=== PATIENT | male | born 1950 | race Caucasian/White ===

== ENCOUNTER → 2021-02-11 00:20 | Outpatient (CLI) | payer MEDICARE, SELFPAY ==
[2021-02-13 13:22] LABS: SARS-CoV-2 RNA PCR Negative
== END ==
PROVIDERS: PCP Family Medicine; Visit Provider Internal Medicine Gastroenterology
DX: Z01.812 Encounter for preprocedural laboratory examination (principal); Z20.822 Contact with and (suspected) exposure to COVID-19
CPT/HCPCS: C9803; U0003; U0005

== ENCOUNTER 2021-02-14 00:32 | Day surgery (SDC) | payer MEDICARE, SELFPAY ==
[2021-01-25 13:51] VITALS: BMI 33.5
[2021-02-13 12:49] LABS: EDCOVIDSCREEN Negative (Negative)
[2021-02-14 06:22] VITALS: BP 129/83; PULSE 67; RESP 14; TEMP 36.2; O2SAT 97; BMI 32.5
[2021-02-14] MEDS: LACTATED RINGERS 1,000 ML 150 ML IV CONT (06:34)
--- NOTE | 2021-02-14 07:15 | WPDANESEPPF ---
Anes - Initial Pre Proc Eval Procedure: Operation Date: 02/14/21 07:30 Proposed Procedures p Screening Colonoscopy - Reji Emmanuel DO Date/Time: 02/14/21 07:15 Surgeon: Reji Emmanuel DO Pre Op Diagnosis: Neoplasm Screening Patient Data Age: 70 Gender: M Height: 1.73 m Weight: 97.2 kg Last Vital Signs Temp 36.2 C L 02/14/21 06:22 Pulse 67 02/14/21 06:22 Resp 14 02/14/21 06:22 BP 129/83 02/14/21 06:22 Pulse Ox 97 02/14/21 06:22 Allergies Allergy/AdvReac Type Severity Reaction Status Date / Time No Known Allergies Allergy Mild Verified 02/14/21 06:18 Home Medications Medication Instructions Recorded Confirmed Type brimonidine 0.2 % eye drops 1 drop EACH EYE Q8H 08/26/19 01/25/21 History cetirizine 10 mg tablet 5 mg PO DAILY 08/26/19 01/25/21 History amlodipine 10 mg tablet 10 mg PO DAILY #90 tablet 09/04/20 01/25/21 Rx fenofibrate 160 mg tablet 160 mg PO DAILY #90 tablet 09/04/20 01/25/21 Rx quinapril 20 2 tablet PO DAILY #180 tablet 09/04/20 01/25/21 Rx mg-hydrochlorothiazide 12.5 mg tablet Laboratory Tests 02/13/21 12:19 SARS-CoV-2 IgG/IgM Ag?Rapid Negative (Negative) Patient hx anesthesia problems: none Family hx anesthesia problems: none PMFSH Surgical History Surgical History (Updated 08/29/19 @ 17:21 by Zi Echevarria MD) Status post tonsillectomy Family History Family History Father Family history of coronary artery disease Diabetes mellitus Mother Diabetes mellitus Social History Social History Smoking status: Never smoker Second hand tobacco smoke exposure: No Smoking end date: 08/24/05 Alcohol intake: current Drinks per week: 14 Substance use: never Substance use type: does not use Living arrangements: with family Gender identity (if verbalized by the patient): Male Spiritual care concerns: No Anes - Eval Final PreProcedure Day of Procedure 02/14/21 07:15 Patient weight: morbidly obese Heart: regular rate and rhythm Lungs: clear to auscultation Airway: Mallampati scale class II Neurological: alert and oriented Last oral intake: >/= 8 hours ASA classification: III Emergent: no Anesthetic plan: proceed Anesthesia type and monitoring: general GIVS and standard monitoring Informed Consent: The patient's anesthetic plan and its attendant risks and benefits were discussed with the patient/family/POA. Questions were solicited and answers provided to the satisfaction of the patient/family/POA.
--- NOTE | 2021-02-14 07:30 | WPDGICN ---
GI Consult Note Consult date/time: 02/14/21 07:30 HPI: Reason for visit is colonoscopy. This very pleasant gentleman seen in consultation request the primary physician. Impression: Screening and surveillance colonoscopy. Patient's history adenomatous colon polyps. HLD. HTN. ALONSO. Obesity. Glaucoma. Recommendation: Colonoscopy. History: This very pleasant gentleman is here for screening and surveillance colonoscopy. He has a history adenomatous colon polyps. His GI review systems negative. Physical examination: General: very pleasant patient in no acute distress. HEENT: Head was normocephalic sclerae is clear mouth without masses neck was supple. Heart: Rate rhythm regular without S3 or S4. Lungs: CTA. Abdomen: Soft with no guarding or rigidity. Bowel sounds were active. Neurologic: Cranial nerves 2 through 12 intact. No focal defects. No clonus. Musculoskeletal system: Revealed no joint tenderness or swelling no muscle atrophy. Extremities: Reveal no significant edema. Skin: Warm and dry with normal turgor. Mental status: intact. Patient is alert and oriented. Review of Systems Review of Systems: All systems reviewed & are unremarkable except as noted in HPI and below PMFSH Past Medical History Medical History (Updated 02/14/21 @ 07:30 by Reji Emmanuel DO) Adenomatous colon polyp Glaucoma HLD (hyperlipidemia) HTN (hypertension) Obesity ALONSO (obstructive sleep apnea) Surgical History Surgical History (Updated 02/14/21 @ 07:20 by Reji Emmanuel DO) H/O colonoscopy Status post tonsillectomy Family History Family History Father Family history of coronary artery disease Diabetes mellitus Mother Diabetes mellitus Social History Social History Smoking status: Never smoker Second hand tobacco smoke exposure: No Smoking end date: 08/24/05 Alcohol intake: current Drinks per week: 14 Substance use: never Substance use type: does not use Living arrangements: with family Gender identity (if verbalized by the patient): Male Spiritual care concerns: No Meds Home Medications and Allergies Home Medications Medication Instructions Recorded Confirmed Type brimonidine 0.2 % eye drops 1 drop EACH EYE Q8H 08/26/19 01/25/21 History cetirizine 10 mg tablet 5 mg PO DAILY 08/26/19 01/25/21 History amlodipine 10 mg tablet 10 mg PO DAILY #90 tablet 09/04/20 01/25/21 Rx fenofibrate 160 mg tablet 160 mg PO DAILY #90 tablet 09/04/20 01/25/21 Rx quinapril 20 2 tablet PO DAILY #180 tablet 09/04/20 01/25/21 Rx mg-hydrochlorothiazide 12.5 mg tablet Allergies Allergy/AdvReac Type Severity Reaction Status Date / Time No Known Allergies Allergy Mild Verified 02/14/21 06:18 Vital Signs Vital Signs - 24 hr 02/14/21 06:22 Temperature 36.2 C L Pulse Rate 67 Respiratory Rate 14 Blood Pressure 129/83 Pulse Oximetry 97
[2021-02-14 07:55] VITALS: BP 109/62; PULSE 63; RESP 19; O2SAT 97
[2021-02-14 08:05] VITALS: BP 112/72; PULSE 60; RESP 17; O2SAT 99
[2021-02-14 08:15] VITALS: BP 121/63; PULSE 60; RESP 20; O2SAT 98
== END 2021-02-14 08:35 | disposition home or self-care (01) ==
PROVIDERS: PCP Family Medicine; Visit Provider Internal Medicine Gastroenterology
PROC: 0DJD8ZZ Inspection of Lower Intestinal Tract, Via Natural or Artificial Opening Endoscopic (ICD-10-PCS; CPT 45378; principal; 2021-02-14 07:30)
DX: Z12.11 Encounter for screening for malignant neoplasm of colon (principal); D12.4 Benign neoplasm of descending colon; D12.2 Benign neoplasm of ascending colon; K64.8 Other hemorrhoids; K64.4 Residual hemorrhoidal skin tags; I10 Essential (primary) hypertension; E78.5 Hyperlipidemia, unspecified; G47.33 Obstructive sleep apnea (adult) (pediatric); H40.9 Unspecified glaucoma; E66.9 Obesity, unspecified; Z68.32 Body mass index [BMI] 32.0-32.9, adult; Z20.822 Contact with and (suspected) exposure to COVID-19
CPT/HCPCS: 45385; 45380; 36415; 87426; 88305; C9803; J7120; U0003; U0005

== ENCOUNTER → 2022-10-21 07:36 | Outpatient (CLI) | payer MEDICARE, SELFPAY ==
--- NOTE | ~2022-10-21 | US_ITS ---
EXAMINATION: US aorta [facility] DATE: 10/21/2022 08:29 [employer] INDICATION: Hypertension, obesity, past history of smoking and high cholesterol TECHNIQUE: Grayscale, color Doppler, and pulsed Doppler images of the aorta and common iliac arteries were obtained. COMPARISON: None. FINDINGS: The proximal aorta measures 2.7 cm greatest sagittal dimension. The mid aorta measures 1.6 cm greates t sagittal dimension. The distal aorta measures 1.8 cm greatest sagittal dimension. The right common internal iliac artery measures 1.1 cm. The left common iliac artery measures 1.5 cm. IMPRESSION: 1. Normal caliber aorta without aneurysm. Reviewed, dictated and finalized at location D. ARD/[employer]
== END ==
PROVIDERS: PCP Family Medicine; Visit Provider Family Medicine
DX: Z13.6 Encounter for screening for cardiovascular disorders (principal)
CPT/HCPCS: 76706

== ENCOUNTER 2023-12-09 13:30 | Outpatient (RCR) | payer MEDICARE, SELFPAY ==
[2023-12-09 13:30] VITALS: BMI 34.0
[2023-12-09 13:32] VITALS: BMI 34.0
== END 2024-01-25 09:29 | disposition home or self-care (01) ==
LOC: ANHDMC 13:30
PROVIDERS: PCP Family Medicine; Visit Provider Family Medicine
DX: E11.65 Type 2 diabetes mellitus with hyperglycemia (principal); Z71.89 Other specified counseling; Z71.3 Dietary counseling and surveillance
CPT/HCPCS: 97802; G0108; G0109

== ENCOUNTER 2024-03-23 14:45 | Outpatient (RCR) | payer MEDICARE, SELFPAY ==
[2024-03-23 14:43] VITALS: BMI 33.9
== END 2024-05-06 08:52 | disposition home or self-care (01) ==
LOC: ANHDMC 14:45
PROVIDERS: PCP Family Medicine; Visit Provider Family Medicine
DX: E11.65 Type 2 diabetes mellitus with hyperglycemia (principal); Z71.89 Other specified counseling; Z71.3 Dietary counseling and surveillance
CPT/HCPCS: 97803; G0109